=== PATIENT | female | born 1985 ===

== ENCOUNTER 2017-09-24 00:51 | Emergency (ER) | payer OTHER ==
[2017-09-24 01:04] VITALS: RESP 16; TEMP 97.4
[2017-09-24 02:06] VITALS: BP 114/70; PULSE 81; O2SAT 99
== END 2017-09-24 02:04 | disposition other institution (70) | DRG 125 ==
LOC: ED 00:51
DX: S00.11XA Contusion of right eyelid and periocular area, initial encounter (principal); Y04.2XXA Assault by strike against or bumped into by another person, initial encounter
CPT/HCPCS: 70450; 99282